=== PATIENT | female | born 1945 | race Asian ===

== ENCOUNTER 2021-02-04 20:48 | Emergency (ER) | payer OTHER ==
[2021-02-04 20:55] VITALS: BP_SYST 179
[2021-02-04 22:10] LABS: BASOPHILS % (AUTO) 0.5 % (0.0-2.0); EOSINOPHILS # (AUTO) 0.2 K/uL (0.0-0.4); EOSINOPHILS % (AUTO) 2.5 % (0.0-4.0); HEMATOCRIT 40.5 % (36-48); HEMOGLOBIN 13.6 g/dL (12.0-16.0); LYMPHOCYTES # (AUTO) 1.6 K/uL (1.0-5.5); LYMPHOCYTES % (AUTO) 23.1 % (20.5-51.5); MEAN CORPUSCULAR HEMOGLOBIN 29 pg (27-31); MEAN CORPUSCULAR HGB CONC 34 % (32-36); MEAN CORPUSCULAR VOLUME 85 fL (79.0-98.0); MONOCYTES # (AUTO) 0.5 K/uL (0.0-1.0); NEUTROPHILS # (AUTO) 4.5 K/uL (1.8-7.7); NEUTROPHILS % (AUTO) 66.9 % (40.0-70.0); PLATELET COUNT (AUTO) 274 K/uL (130-430); RED BLOOD CELL COUNT(AUTO) 4.77 MIL/uL (4.2-6.2); RED CELL DISTRIBUTION WIDTH 14.4 % (9.0-15.0); WHITE BLOOD COUNT (AUTO) 6.7 K/uL (4.8-10.8)
[2021-02-04 22:28] LABS: INR 0.9 (0.8-1.2); PROTHROMBIN TIME 9.9 SECS (9.5-12.5)
[2021-02-04] MEDS ORDERED: NS 500 ML IV ONE (22:30)
[2021-02-04] MEDS ORDERED: METO25TA3 PO (22:36)
[2021-02-04] MEDS ORDERED: ASPI-1393 PO (22:36)
[2021-02-04] MEDS ORDERED: NEU300 PO (22:36)
[2021-02-04] MEDS ORDERED: VITD2000 PO (22:36)
[2021-02-04] MEDS ORDERED: PRAV40TA63 PO (22:36)
[2021-02-04] MEDS ORDERED: ALEN10TA25 PO (22:36)
[2021-02-04] MEDS ORDERED: DULO60CA41 PO (22:36)
[2021-02-04] MEDS ORDERED: DORZ10DR13 EACH EYE (22:36)
[2021-02-04] MEDS ORDERED: BACL10TA PO (22:36)
[2021-02-04] MEDS ORDERED: XALEYE OP (22:36)
[2021-02-04 22:44] LABS: ANION GAP 9 (5-15); CALCIUM 8.9 mg/dL (8.4-11.0); CHLORIDE 103 mmol/L (98-107); CREATININE 1.07 mg/dL (0.55-1.30); GLUCOSE 125 mg/dL (70-99); POTASSIUM 3.8 mmol/L (3.5-5.1); SODIUM SERUM 138 mmol/L (136-145); UREA NITROGEN, BLOOD 12 mg/dL (8-21)
[2021-02-04 22:59] LABS: ALANINE AMINOTRANSFERASE 25 U/L (12-78); ALBUMIN 3.7 g/dL (3.4-4.8); ASPARTATE AMINOTRANSFERASE 22 U/L (10-37); FREE T4 (FREE THYROXINE) 1.2 ng/dl (0.8-1.5); THYROID STIMULATING HORMONE 1.41 uIu/mL (0.36-3.74); TOTAL BILIRUBIN 0.3 mg/dL (0.0-1.0)
[2021-02-05 00:01] VITALS: BP_SYST 152
== END 2021-02-05 00:01 | disposition home or self-care (01) ==
LOC: SED 20:48
DX: I47.9 Paroxysmal tachycardia, unspecified (principal); I10 Essential (primary) hypertension; Z79.899 Other long term (current) drug therapy; Z88.0 Allergy status to penicillin
CPT/HCPCS: 36415; 71045; 80053; 83880; 84439; 84443; 84484; 85025; 85610-TC; 85730-TC; 93005; 99285

== ENCOUNTER 2022-12-03 00:08 | Inpatient (IN) | payer OTHER ==
[~2022-12-03] VITALS: Ht 157.5 cm; Wt 72.6 kg
[~2022-12-03 00:08] MED LIST: ALEN10TA25 PO; ASPI-1393 PO; BACL10TA PO; DORZ10DR31 EACH EYE; DULO60CA42 PO; METO25TA3 PO; NEU300 PO; PRAV40TA63 PO; VITD2000 PO; XALEYE OP
[2022-12-03 00:14] VITALS: BP_SYST 146; PULSE 88; RESP 19; TEMP 97.9; O2SAT 98
[2022-12-03] MEDS ORDERED: iohexoL 350 mgI/mL, 100 ML INFUS..BTL IV ONE (00:39)
[2022-12-03 01:20] LABS: INR 0.9 (0.8-1.2); PROTHROMBIN TIME 9.5 SECS (9.5-12.5)
[2022-12-03 01:38] LABS: BASOPHILS % (AUTO) 0.3 % (0.0-2.0); EOSINOPHILS # (AUTO) 0.1 K/uL (0.0-0.4); EOSINOPHILS % (AUTO) 1.4 % (0.0-4.0); HEMATOCRIT 47.3 % (36-48); HEMOGLOBIN 15.5 g/dL (12.0-16.0); LYMPHOCYTES % (AUTO) 30.9 % (20.5-51.5); MEAN CORPUSCULAR HEMOGLOBIN 29 pg (27-31); MEAN CORPUSCULAR HGB CONC 33 % (32-36); MEAN CORPUSCULAR VOLUME 88 fL (79.0-98.0); MONOCYTES # (AUTO) 0.4 K/uL (0.0-1.0); MONOCYTES % (AUTO) 5.6 % (1.7-9.3); NEUTROPHILS # (AUTO) 4.1 K/uL (1.8-7.7); NEUTROPHILS % (AUTO) 61.8 % (40.0-70.0); PLATELET COUNT (AUTO) 292 K/uL (130-430); RED BLOOD CELL COUNT(AUTO) 5.36 MIL/uL (4.2-6.2); RED CELL DISTRIBUTION WIDTH 16.3 % (9.0-15.0); WHITE BLOOD COUNT (AUTO) 6.6 K/uL (4.8-10.8)
[2022-12-03 01:44] LABS: ALANINE AMINOTRANSFERASE 32 U/L (12-78); ALBUMIN 3.7 g/dL (3.4-4.8); ANION GAP 10 (5-15); ASPARTATE AMINOTRANSFERASE 19 U/L (10-37); CALCIUM 8.8 mg/dL (8.4-11.0); CARBON DIOXIDE 28 mmol/L (23-29); CHLORIDE 101 mmol/L (98-107); CREATININE 0.84 mg/dL (0.55-1.30); GLUCOSE 112 mg/dL (74-106); POTASSIUM 3.8 mmol/L (3.5-5.1); SODIUM SERUM 139 mmol/L (136-145); TOTAL BILIRUBIN 0.4 mg/dL (0.0-1.0); TOTAL PROTEIN, SERUM 7.8 g/dL (6.4-8.3); UREA NITROGEN, BLOOD 10 mg/dL (8-21)
[2022-12-03 01:54] LABS: HEMOGLOBIN A1C 5.85 % (<5.7)
[2022-12-03 02:00] LABS: CHOLESTEROL 258 mg/dL (<200); HDL CHOLESTEROL 82 mg/dL (>55); TRIGLYCERIDES 122 mg/dL (30-150)
[2022-12-03] MEDS ORDERED: NOR10 PO (02:02)
[2022-12-03] MEDS ORDERED: FAMO40TA7 PO (02:03)
[2022-12-03 06:48] LABS: BILIRUBIN,URINE NEGATIVE (NEGATIVE); CLARITY/URINE Clear (CLEAR); COLOR,URINE YELLOW (YELLOW); GLUCOSE,URINE NEGATIVE (NEGATIVE); KETONES,URINE NEGATIVE (NEGATIVE); LEUKOCYTE ESTERASE ,URINE NEGATIVE (NEGATIVE); NITRITE, URINE NEGATIVE (NEGATIVE); PROTEIN URINE NEGATIVE (NEGATIVE); UROBILINOGEN,URINE 0.2 (0.2-1.0)
[2022-12-03 06:50] LABS: BLOOD, URINE NEGATIVE (NEGATIVE)
[2022-12-03] MEDS ORDERED: ALEN70TA84 PO (07:25)
[2022-12-03 07:35] LABS: BARBITURATE, URINE NEGATIVE (NEG <=200); BENZODIAZEPINE, URINE NEGATIVE (NEG <=150); CANNABINOID, URINE NEGATIVE (NEG <=50); COCAINE, URINE NEGATIVE (NEG <=150); METHAMPHETAMINES SCREEN,URINE NEGATIVE (NEG <=500); OPIATE, URINE NEGATIVE (NEG <=100); PHENCYCLIDINE SCREEN,URINE NEGATIVE (NEG <=25); URINE AMPHETAMINE NEGATIVE (NEG <=500); URINE METHADONE NEGATIVE (NEG <=200); URINE OXYCODONE SCREEN NEGATIVE (NEG <=100); URINE PROPOXYPHENE SCREEN NEGATIVE (NEG <=300)
[2022-12-03 07:37] LABS: UR TRICYCLIC ANTIDEPRESSANTS NEGATIVE (NEG <=300)
[2022-12-03 09:00] VITALS: BP_SYST 142; PULSE 88; RESP 18; TEMP 98.2; O2SAT 95
[2022-12-03] MEDS ORDERED: ASPIRIN 81 MG TAB.CHEW PO SCH (09:00)
[2022-12-03] MEDS ORDERED: ATORVASTATIN 20 MG TABLET PO SCH (09:00)
[2022-12-03 16:00] VITALS: BP_SYST 150; PULSE 91; RESP 18; TEMP 98.2; O2SAT 96
[2022-12-03] MEDS ORDERED: ALENDRONATE SODIUM 70 MG TABLET (FOSAMAX) PO SCH (19:15)
[2022-12-03] MEDS ORDERED: NALOXONE HCL 0.4 MG/ML AMP (NARCAN) IVP PRN ×2 (19:15)
[2022-12-03] MEDS ORDERED: ACETAMINOPHEN 325 MG TABLET PO PRN ×2 (19:15→19:45)
[2022-12-03] MEDS ORDERED: ONDANSETRON HCL 4 MG/2 ML VIAL IVP PRN (19:15)
[2022-12-03] MEDS ORDERED: LORazepam 2 MG/ML VIAL IVP PRN (19:15)
[2022-12-03] MEDS ORDERED: HYDROcodone/ACETAMIN 5-325 MG TAB (NORCO/ VICODIN) PO PRN (19:15)
[2022-12-03] MEDS ORDERED: HYDROcodone/ACETAMIN 10-325 MG TAB PO PRN (19:15)
[2022-12-03] MEDS ORDERED: AMLO5TAB4 PO (19:47)
[2022-12-03 20:00] VITALS: BP_SYST 134; PULSE 87; RESP 19; TEMP 99.5; O2SAT 96; O2SAT 98
[2022-12-03] MEDS: DORZOLAMIDE HCL/TIMOLOL MAL. 10 ML EYE DROPS (COSOPT) EACH EYE SCH (21:00)
[2022-12-03] MEDS ORDERED: LATANOPROST 2.5 ML DROPS (XALATAN) OP SCH (21:00)
[2022-12-03] MEDS ORDERED: NON-FORMULARY MEDICATION (Pravastatin Sodium 40 MG) PO SCH (21:00)
[2022-12-03] MEDS ORDERED: ATORVASTATIN 10 MG TABLET PO SCH (21:00)
[2022-12-03] MEDS: GABAPENTIN 300 MG CAPSULE PO SCH (22:32)
[2022-12-03] MEDS: BACLOFEN 10 MG TABLET PO SCH (22:32)
[2022-12-03] MEDS: NORMAL SALINE 5 ML DISP.SYRIN IVF SCH (22:34)
[2022-12-04] VITALS: BP_SYST 130; PULSE 71; RESP 16; TEMP 98; O2SAT 97
[2022-12-04 05:08] LABS: BASOPHILS % (AUTO) 0.3 % (0.0-2.0); EOSINOPHILS # (AUTO) 0.1 K/uL (0.0-0.4); EOSINOPHILS % (AUTO) 1.3 % (0.0-4.0); HEMATOCRIT 44.2 % (36-48); HEMOGLOBIN 14.7 g/dL (12.0-16.0); LYMPHOCYTES # (AUTO) 2.5 K/uL (1.0-5.5); LYMPHOCYTES % (AUTO) 35.9 % (20.5-51.5); MEAN CORPUSCULAR HEMOGLOBIN 29 pg (27-31); MEAN CORPUSCULAR HGB CONC 33 % (32-36); MEAN CORPUSCULAR VOLUME 88 fL (79.0-98.0); MONOCYTES # (AUTO) 0.5 K/uL (0.0-1.0); MONOCYTES % (AUTO) 7.7 % (1.7-9.3); NEUTROPHILS # (AUTO) 3.8 K/uL (1.8-7.7); NEUTROPHILS % (AUTO) 54.8 % (40.0-70.0); PLATELET COUNT (AUTO) 268 K/uL (130-430); RED BLOOD CELL COUNT(AUTO) 5.04 MIL/uL (4.2-6.2); RED CELL DISTRIBUTION WIDTH 15.6 % (9.0-15.0); WHITE BLOOD COUNT (AUTO) 6.9 K/uL (4.8-10.8)
[2022-12-04 05:29] LABS: ANION GAP 10 (5-15); CALCIUM 8.6 mg/dL (8.4-11.0); CARBON DIOXIDE 28 mmol/L (23-29); CHLORIDE 104 mmol/L (98-107); GLUCOSE 96 mg/dL (74-106); PHOSPHORUS 3.9 mg/dL (2.7-4.5); POTASSIUM 3.6 mmol/L (3.5-5.1); SODIUM SERUM 142 mmol/L (136-145); UREA NITROGEN, BLOOD 11 mg/dL (8-21)
[2022-12-04] MEDS: NORMAL SALINE 5 ML DISP.SYRIN IVF SCH ×2 (06:35→16:42)
[2022-12-04 07:30] VITALS: BP_SYST 135; PULSE 77; RESP 18; TEMP 98.1; O2SAT 95
[2022-12-04] MEDS ORDERED: METOPROLOL SUCCINATE 25 MG TAB.SR.24H (TOPROL XL) PO SCH (09:00)
[2022-12-04] MEDS ORDERED: DULoxetine HCL 30 MG CAPSULE.DR (CYMBALTA) PO SCH (09:00)
[2022-12-04] MEDS ORDERED: amLODIPine BESYLATE 5 MG TABLET PO SCH (09:00)
[2022-12-04] MEDS ORDERED: ASPIRIN 81 MG TABLET(ECOTRIN) PO SCH (09:00)
[2022-12-04] MEDS ORDERED: FAMOTIDINE 20 MG TABLET PO SCH (09:00)
[2022-12-04] MEDS ORDERED: CHOLECALCIFEROL (VITAMIN D3) 2,000 UNIT TABLET PO SCH (09:00)
[2022-12-04] MEDS: DORZOLAMIDE HCL/TIMOLOL MAL. 10 ML EYE DROPS (COSOPT) EACH EYE SCH (09:07)
[2022-12-04] MEDS: BACLOFEN 10 MG TABLET PO SCH (09:10)
[2022-12-04] MEDS: GABAPENTIN 300 MG CAPSULE PO SCH ×2 (09:10→16:41)
[2022-12-04 11:30] VITALS: BP_SYST 132; PULSE 75; RESP 18; TEMP 97.9; O2SAT 96
[2022-12-04 16:00] VITALS: BP_SYST 135; PULSE 69; RESP 18; TEMP 97.9; O2SAT 95
[2022-12-04 16:27] VITALS: BP_SYST 132; PULSE 75; RESP 18; TEMP 97.9; O2SAT 96
== END 2022-12-04 17:50 | disposition home or self-care (01) | DRG 69 ==
LOC: SED 00:08 → STU 01:48
PROVIDERS: ADMIT Family Medicine; ATTEND Preventive Medicine Preventive Medicine/Occupational Environmental Medicine
DX: G45.9 Transient cerebral ischemic attack, unspecified (principal); R29.810 Facial weakness; I10 Essential (primary) hypertension; M06.9 Rheumatoid arthritis, unspecified; E78.5 Hyperlipidemia, unspecified; M81.0 Age-related osteoporosis without current pathological fracture; E04.1 Nontoxic single thyroid nodule; K21.9 Gastro-esophageal reflux disease without esophagitis; H40.9 Unspecified glaucoma; E83.41 Hypermagnesemia; Z88.0 Allergy status to penicillin
CPT/HCPCS: 36415; 70450-TC; 70496; 70498; 70551; 71045; 76376; 80048; 80053; 80061; 80307; 81003; 82962; 83037; 83735; 84100; 84484; 85025; 85610-TC; 85730-TC; 86886; 86900; 86901; 93005; 93306; 97112-GP; 97116-GP; 99291; G0378; Q9967